=== PATIENT | female | born 1970 | race African-American/Black ===

== ENCOUNTER 2022-12-02 17:18 | Inpatient (IN) | payer MEDICAID ==
[~2022-12-02] VITALS: Ht 160 cm; Wt 59.0 kg
[2022-12-02] MEDS ORDERED: NITROGLYCERIN 0.4MG TABLET SL SL PRN (18:30)
[2022-12-02 19:09] LABS: CHLORIDE 105 mEq/L (98-107)
[2022-12-02 19:21] LABS: BASOPHILS % 0.9 % (0.0-2.0); EOSINOPHILS % 3.3 % (0.0-5.0); HEMOGLOBIN. 13.3 g/dL (12.0-16.0); LYMPHOCYTES % 20.8 % (20.0-50.0); MEAN CORPUSCULAR HEMOGLOBIN 31.5 pg (28.0-32.0); MEAN CORPUSCULAR VOLUME 94.9 fL (81.0-99.0); MEAN PLATELET VOLUME 8.5 fl (7.4-10.4); MONOCYTES % 7.3 % (2.0-8.0); NEUTROPHILS % 67.7 % (40.0-76.0); PLATELET 232 x1000/uL (130-400); RED BLOOD CELL COUNT 4.21 mill/uL (4.2-5.4)
[2022-12-02] MEDS ORDERED: ASPIRIN 325MG EC TABLET PO ONE (21:45)
[2022-12-02] MEDS ORDERED: ASPIRIN 325MG EC TABLET PO NR (23:45)
[2022-12-03] MEDS ORDERED: ACETAMINOPHEN 325MG TABLET PO PRN (08:30)
[2022-12-03] MEDS ORDERED: ONDANSETRON HCL 4MG/2ML INJ IV PRN (08:30)
[2022-12-03 09:00] VITALS: BP 109/65
[2022-12-03] MEDS: ASPIRIN 81MG TABLET PO SCH (10:07)
[2022-12-03 11:28] VITALS: BP 113/71
[2022-12-03 15:12] VITALS: BP 115/77
[2022-12-04 00:02] VITALS: BP 134/85
[2022-12-04 04:00] VITALS: BP 119/84
[2022-12-04 07:57] LABS: BASOPHILS % 0.8 % (0.0-2.0); EOSINOPHILS % 7.1 % (0.0-5.0); HEMATOCRIT. 37.3 % (36.0-48.0); HEMOGLOBIN. 12.7 g/dL (12.0-16.0); MEAN CORPUSCULAR HEMOGLOBIN 32.4 pg (28.0-32.0); MEAN CORPUSCULAR VOLUME 94.8 fL (81.0-99.0); MEAN PLATELET VOLUME 8.4 fl (7.4-10.4); MONOCYTES % 9.2 % (2.0-8.0); NEUTROPHILS % 49.9 % (40.0-76.0); PLATELET 243 x1000/uL (130-400); RED BLOOD CELL COUNT 3.94 mill/uL (4.2-5.4); RED CELL DISTRIBUTION WIDTH 14.1 % (11.6-14.6)
[2022-12-04 08:00] VITALS: BP 134/82
[2022-12-04 08:05] LABS: CHLORIDE 107 mEq/L (98-107)
[2022-12-04 08:23] LABS: HDL CHOLESTEROL 100 mg/dL (40-59); LDL CHOLESTEROL 83 mg/dL (5-100)
[2022-12-04] MEDS: ASPIRIN 81MG TABLET PO SCH (08:37)
[2022-12-04 12:00] VITALS: BP 116/59
[2022-12-04 16:00] VITALS: BP 123/77
[2022-12-04 20:38] VITALS: BP 144/87
[2022-12-05] VITALS: BP 122/80
[2022-12-05 04:00] VITALS: BP 120/78
[2022-12-05 06:04] LABS: BASOPHILS % 0.9 % (0.0-2.0); EOSINOPHILS % 7.6 % (0.0-5.0); HEMOGLOBIN. 12.1 g/dL (12.0-16.0); MEAN CORPUSCULAR HEMOGLOBIN 31.8 pg (28.0-32.0); MEAN CORPUSCULAR VOLUME 94.6 fL (81.0-99.0); MEAN PLATELET VOLUME 8.5 fl (7.4-10.4); MONOCYTES % 10.1 % (2.0-8.0); NEUTROPHILS % 37.4 % (40.0-76.0); PLATELET 242 x1000/uL (130-400); RED CELL DISTRIBUTION WIDTH 13.9 % (11.6-14.6)
[2022-12-05 07:07] LABS: CHLORIDE 107 mEq/L (98-107)
[2022-12-05 08:06] VITALS: BP 117/81
[2022-12-05] MEDS: ASPIRIN 81MG TABLET PO SCH (08:31)
[2022-12-05] MEDS ORDERED: REGADENOSON 0.4 MG/5 ML IV ONE (10:00)
[2022-12-05 12:00] VITALS: BP 138/83
[2022-12-05 15:00] VITALS: BP 138/83
== END 2022-12-05 16:20 | disposition home or self-care (01) | DRG 203 ==
LOC: ER 17:18 → EDBEDREQ 22:48 → EDBEDREQTM 22:48 → 5EST 23:58 → MICUSO 12-03 00:46 → 7WST 12-03 09:52
PROVIDERS: ADMIT Internal Medicine; ATTEND Internal Medicine
DX: M94.0 Chondrocostal junction syndrome [Tietze] (principal); I10 Essential (primary) hypertension; Z20.822 Contact with and (suspected) exposure to COVID-19
CPT/HCPCS: 36415; 71045; 78452; 80048; 80053; 80061; 83735; 83880; 84443; 84484; 85025; 85379; 87426; 93005; 93017; 93306; 93970; 99285; A9500; J2785